=== PATIENT | female | born 1940 | race Hispanic/Latino ===

== ENCOUNTER 2018-06-21 07:00 | Day surgery (SDC) | payer OTHER ==
[2018-06-21] MEDS ORDERED: NA CHLORIDE 0.9% 500 ML ONE (08:14)
[2018-06-21 08:32] LABS: Absolute Lymphocytes (CBC) 1.4 K/uL (0.7-4.9); Absolute Monocytes 0.4 K/uL (0.1-1.3); Absolute Neutrophil 2.6 K/uL (1.8-8.0); Basophils % 0.6 % (0-1.3); Hematocrit 42.7 % (36.0-45.0); Monocytes % 7.8 % (3.3-12.3); RBC Red Blood Cell Count 4.99 M/uL (3.86-4.86)
[2018-06-21 08:43] LABS: Protime INR 1.94
[2018-06-21 09:00] LABS: Potassium 3.9 mmol/L (3.5-5.1)
--- NOTE | 2018-06-21 09:06 | RAD REPORT ---
EXAM DESCRIPTION: RAD - Chest Single View - 06/21/2018 8:29 am CLINICAL HISTORY: preop Chest pain. COMPARISON: Chest Pa And Lat (2 Views) dated 01/16/2017; CHEST SINGLE VIEW dated 07/04/2015; CHEST SIN GLE VIEW dated 04/11/2013; CHEST SINGLE VIEW dated 07/30/2010 FINDINGS: Portable technique limits examination quality. The lungs are grossly clear. The heart is normal in size. No displaced fractures.Aortic atheroscleros is. IMPRESSION: No acute intrathoracic process suspected.
[2018-06-21] MEDS ORDERED: MIDAZOLAM HCL 5 MG/5 ML INJ ONE ×2 (11:18→11:24)
[2018-06-21 13:00] VITALS: TEMP 98.1
[2018-06-21 13:42] VITALS: BP 131/57; O2SAT 95
--- NOTE | 2018-06-21 14:49 | EKG ---
Test Date: 2018-06-21 Test Time: 11:28:32 Test Manager: DAYA MEASUREMENT RESULTS: Intervals: Rate: 77 AR: 190 QRSD: 88 QT: 408 QTc: 461 [place]: P: 77 AR: 190 QRS: 72 T: -50 INTERPRETIVE STATEMENTS: Normal sinus rhythm Nonspecific ST abnormality non specific T wave abnormality Abnormal ECG Compared to ECG 07/04/2015 09:17:59 T-wave abnormality now present Atrial premature complex(es) no longer present Electronically Signed On 06-21-18 14:48:52 CUT TOBACCO BULKER by Romulo Christian
--- NOTE | 2018-06-21 22:19 | OP ---
Date of Procedure: 06/21/2018 Surgeon: Romulo Christian MD Primary Care Physician: Tom Gonsalez MD. Procedure: Direct current cardioversion. Indication: Atrial fibrillation, rapid ventricular response. Procedure In Detail: The patient was brought to the cardiac supervisor labor gang in a fasting state. She had be en on Eliquis, therapeutic dose, continuously for months. She was sedated with Versed, titrated to a n adequate level of sedation, 7.5 mg was used. A single shock 200 joules was delivered through anter ior-posterior paddles, synchronized to the QRS complex. This successfully changed her heart rhythm t o sinus. She will go home taking 200 mg of amiodarone per day and Eliquis and her usual home medications witho ut change. KAITLIN/KOKO Voice ID: [id number] Report ID: [id number]
== END 2018-06-21 13:30 | disposition home or self-care (01) ==
LOC: CCL 07:00
PROVIDERS: ATTEND Internal Medicine
DX: I48.0 Paroxysmal atrial fibrillation (principal); I65.23 Occlusion and stenosis of bilateral carotid arteries; I10 Essential (primary) hypertension; E78.2 Mixed hyperlipidemia; F17.210 Nicotine dependence, cigarettes, uncomplicated; Z82.49 Family history of ischemic heart disease and other diseases of the circulatory system; Z79.01 Long term (current) use of anticoagulants; Z79.899 Other long term (current) drug therapy
CPT/HCPCS: 36415; 71045; 80048; 85025; 85610; 85730; 92960; 93005; J2250 ×2